=== PATIENT | female | born 1980 | race American Indian/Alaskan Native ===

== ENCOUNTER 2017-05-08 08:15 | Emergency (ER) | payer MEDICAID ==
[2017-05-08 08:28] VITALS: BP 137/86
[2017-05-08 08:56] LABS: Bilirubin,Urine NEG (Negative); Blood,Urine NEG (Negative); Color,Urine Yellow (Yellow); Mucus,Urine FEW /HPF; Nitrite,Urine NEG (Negative); Protein,Urine <15 mg/dL mg/dL (Negative); Urobilinogen,Urine < 2.0 mg/dL (<2.0)
--- NOTE | 2017-05-08 10:07 | Emergency Department Report ---
ED Female HPI - General Chief complaint: Urogenital-Female Stated complaint: UTI Time Seen by Provider: 05/08/17 09:04 Source: patient Mode of arrival: Ambulatory Limitations: No Limitations - History of Present Illness Initial comments: This is a 36-year-old female nontoxic, well nourished in appearance, no acute signs of distress presents to the ED with c/o of dysuria, polyuria, hematuria x1 week. Patient denies any vaginal discharge, vaginal bleeding, back pain, pelvic pain, abdominal pain, chest pain, shortness of breath, fever, chills, nausea, vomiting, headache or stiff neck. Patient denies any drug allergies. Past medical history includes headaches and hypertension. MD Complaint: dysuria -: week(s) (1) Radiation: non-radiating Severity: mild Severity scale (0 -10): 8 Quality: burning Consistency: constant Improves with: none Worsens with: urination Are you Now?: No Last Menstrual Period: 04/28/17 EDC: 02/02/18 Associated Symptoms: dysuria, hematuria. denies: vaginal discharge, vaginal bleeding, abdominal pain, nausea/vomiting, fever/chills, headaches, loss of appetite, rash, seizure, shortness of breath, syncope, weakness - Related Data Home Medications Medication Instructions Recorded Confirmed Last Taken Gabapentin 100 mg PO DAILY 11/29/12 05/19/13 05/18/13 Oxycodone HCl/Acetaminophen 1 each PO 3XW 05/19/13 05/19/13 05/17/13 [Percocet 10-325 mg Tablet] Previous Rx's Medication Instructions Recorded Last Taken Type HYDROcodone/APAP 5-325 [[place] 1 each PO Q6HR PRN #15 tablet 05/19/13 Unknown Rx 5/325 mg] Fluconazole [Diflucan TAB] 150 mg PO ONCE #2 tablet 05/08/17 Unknown Rx Sulfamethoxazole/Trimethoprim 1 each PO BID #14 tablet 05/08/17 Unknown Rx [Bactrim DS TAB] Allergies Allergy/AdvReac Type Severity Reaction Status Date / Time No Known Allergies Allergy Verified 05/19/13 19:33 ED Review of Systems ROS: Stated complaint: UTI Other details as noted in HPI Constitutional: denies: chills, fever Eyes: denies: eye pain, eye discharge, vision change ENT: denies: ear pain, throat pain Respiratory: denies: cough, shortness of breath, wheezing Cardiovascular: denies: chest pain, palpitations Endocrine: no symptoms reported Gastrointestinal: denies: abdominal pain, nausea, diarrhea Genitourinary: urgency, dysuria, frequency, hematuria. denies: discharge Musculoskeletal: denies: back pain, joint swelling, arthralgia Skin: denies: rash, lesions Neurological: denies: headache, weakness, paresthesias Psychiatric: denies: anxiety, depression Hematological/Lymphatic: denies: easy bleeding, easy bruising ED Past Medical Hx - Past Medical History Previous Medical History?: Yes Hx Hypertension: No Hx Headaches / Migraines: Yes Additional medical history: ovarian cyst - Surgical History Past Surgical History?: No Additional Surgical History: hernia repair - Social History Smoking Status: Never Smoker - Medications Home Medications: Home Medications Medication Instructions Recorded Confirmed Last Taken Type Gabapentin 100 mg PO DAILY 11/29/12 05/19/13 05/18/13 History HYDROcodone/APAP 5-325 [[place] 1 each PO Q6HR PRN #15 tablet 05/19/13 Unknown Rx 5/325 mg] Oxycodone HCl/Acetaminophen 1 each PO 3XW 05/19/13 05/19/13 05/17/13 History [Percocet 10-325 mg Tablet] Fluconazole [Diflucan TAB] 150 mg PO ONCE #2 tablet 05/08/17 Unknown Rx Sulfamethoxazole/Trimethoprim 1 each PO BID #14 tablet 05/08/17 Unknown Rx [Bactrim DS TAB] ED Physical Exam - General Limitations: No Limitations General appearance: alert, in no apparent distress - Head Head exam: Present: atraumatic, normocephalic - Eye Eye exam: Present: normal appearance - ENT ENT exam: Present: mucous membranes moist - Neck Neck exam: Present: normal inspection - Respiratory Respiratory exam: Present: normal lung sounds bilaterally. Absent: respiratory distress, wheezes, rales, rhonchi, stridor - Cardiovascular Cardiovascular Exam: Present: regular rate, normal rhythm, normal heart sounds. Absent: tachycardia, irregular rhythm, systolic murmur, diastolic murmur, rubs , gallop - GI/Abdominal GI/Abdominal exam: Present: soft, normal bowel sounds. Absent: distended, tenderness, guarding, rebound, rigid, diminished bowel sounds - Extremities Exam Extremities exam: Present: normal inspection, full ROM, normal capillary refill - Back Exam Back exam: Present: normal inspection, full ROM. Absent: tenderness, CVA tenderness (R), CVA tenderness (L), muscle spasm, paraspinal tenderness, vertebral tenderness, rash noted - Neurological Exam Neurological exam: Present: alert, oriented X3, CN II-XII intact, normal gait, reflexes normal - Psychiatric Psychiatric exam: Present: normal affect, normal mood - Skin Skin exam: Present: warm, dry, intact, normal color. Absent: rash ED Course Vital Signs 05/08/17 08:22 Temperature 97.6 F Pulse Rate 68 Respiratory 16 Rate Blood Pressure 137/86 O2 Sat by Pulse 8 L Oximetry - Reevaluation(s) Reevaluation #1: 05/08/17 10:07 Patient is speaking in full sentences with no signs of distress noted. ED Medical Decision Making - Medical Decision Making This is a 36-year-old female that presents with urinary tract infection. Patient is stable and was examined by me. UA obtained within normal limits but due to the patient symptoms of UTI I will treat patient with Bactrim. Patient stated there is no chance of her being . Last menstrual cycle 2017. Patient is requested for yeast infection treatment because patient develops what taking antibiotics. Patient received Diflucan at discharge. Patient was instructed Follow-up with a primary care doctor in 3-5 days or if symptoms worsen and continue return to emergency room as soon as possible. At time of discharge, the patient does not seem toxic or ill in appearance. No acute signs of distress noted. Patient agrees to discharge treatment plan of care. No further questions noted by the patient. Critical care attestation.: If time is entered above; I have spent that time in minutes in the direct care of this critically ill patient, excluding procedure time. ED Disposition Clinical Impression: UTI (urinary tract infection) Qualifiers: Urinary tract infection type: site unspecified Hematuria presence: with hematuria Qualified Code(s): N39.0 - Urinary tract infection, site not specified ; R31.9 - Hematuria, unspecified; R31.9 - Hematuria, unspecified Disposition: - TO HOME OR SELFCARE Is pt being admited?: No Does the pt Need Aspirin: No Condition: Stable Instructions: Urinary Tract Infection in Children (ED), Sulfamethoxazole/ Trimethoprim (By mouth) Additional Instructions: Follow-up with a primary care doctor in 3-5 days or if symptoms worsen and continue return to emergency room as soon as possible. Prescriptions: Fluconazole [Diflucan TAB] 150 mg PO ONCE #2 tablet Sulfamethoxazole/Trimethoprim [Bactrim DS TAB] 1 each PO BID #14 tablet Referrals: PRIMARY CARE, [Primary Care Provider] - 3-5 Days JENNIFER APPIAH MD [Staff Physician] - 3-5 Days [facility] [Outside] - 3-5 Days [facility] [Outside] - 3-5 Days Forms: Work/School Release Form(ED)
== END 2017-05-08 10:14 | disposition home or self-care (01) ==
LOC: ED 08:15
DX: N39.0 Urinary tract infection, site not specified (principal); R31.9 Hematuria, unspecified; G43.909 Migraine, unspecified, not intractable, without status migrainosus; N83.209 Unspecified ovarian cyst, unspecified side
CPT/HCPCS: 81001; 99283

== ENCOUNTER 2020-01-09 11:35 | Emergency (ER) | payer MEDICAID ==
[2020-01-09 12:59] VITALS: BP 174/99
== END 2020-01-09 13:00 | disposition left against medical advice (07) ==
LOC: ED 11:35
DX: R51.9 Headache, unspecified (principal); Z53.21 Procedure and treatment not carried out due to patient leaving prior to being seen by health care provider

== ENCOUNTER 2021-12-01 08:03 | Emergency (ER) | payer MEDICAID ==
[2021-12-01 09:10] LABS: Calcium Oxalate Crystals,Urine 1+; Mucus,Urine 2+ /HPF
[2021-12-01 09:13] LABS: Color,Urine Straw (Yellow)
[2021-12-01 10:04] LABS: Basophils % (Auto) 0.4 % (0.0-1.8); Eosinophils # (Auto) 0.3 K/mm3 (0.0-0.4); Eosinophils % (Auto) 3.1 % (0.0-4.3); Hematocrit 37.4 % (30.3-42.9); Hemoglobin 12.1 gm/dl (10.1-14.3); Lymphocytes # (Auto) 4.1 K/mm3 (1.2-5.4); Lymphocytes % (Auto) 36.1 % (13.4-35.0); Mean Corpuscular HGB Conc 32 % (30-34); Mean Corpuscular Volume 92 fl (79-97); Monocytes # (Auto) 0.7 K/mm3 (0.0-0.8); Monocytes % (Auto) 6.3 % (0.0-7.3); Platelet Count 247 K/mm3 (140-440); Red Blood Count 4.04 M/mm3 (3.65-5.03); Red Cell Distribution Width 13.1 % (13.2-15.2)
[2021-12-01 10:20] LABS: Blood Urea Nitrogen 12 mg/dL (7-17); Calcium 10.3 mg/dL (8.4-10.2); Hemolysis Index 40
[2021-12-01 10:21] LABS: BUN/Creatinine Ratio 17
[2021-12-01 12:13] LABS: Alanine Aminotransferase 36 units/L (7-56); Albumin 4.6 g/dL (3.9-5)
--- NOTE | 2021-12-01 12:25 | Emergency Department Report ---
ED Female HPI - General Chief complaint: Abdominal Pain Stated complaint: VAGINAL DISCHARGE/LOWER ABD PAIN Source: patient Mode of arrival: Ambulatory Limitations: No Limitations - History of Present Illness Initial comments: 41-year-old female presents to the ED complaining of vaginal discharge with pelvis pain x2 months. Patient states she evaluated by her ASSISTANT PROPERTY MANAGER and was told that she discharge was normal. Patient states she has now experienced pain in her lower pelvic area. Patient did not have any pain in the pelvic area today. Patient denies any fever or chills at present time. Patient is alert and oriented x3 no acute distress noted. No ill appearance noted MD Complaint: vaginal discharge Onset/Timin -: month(s) Severity scale (0 -10): 0 Consistency: intermittent Improves with: none Worsens with: none Are you Now?: No - Related Data Home Medications Medication Instructions Recorded Confirmed Last Taken Gabapentin 100 mg PO DAILY 11/29/12 05/19/13 05/18/13 Oxycodone HCl/Acetaminophen 1 each PO 3XW 05/19/13 05/19/13 05/17/13 [Percocet 10-325 mg Tablet] Previous Rx's Medication Instructions Recorded Last Taken Type HYDROcodone/APAP 5-325 [[place] 1 each PO Q6HR PRN #15 tablet 05/19/13 Unknown Rx 5/325 mg] Fluconazole (Nf) [Diflucan TAB] 150 mg PO ONCE #2 tablet 05/08/17 Unknown Rx Sulfamethoxazole/Trimethoprim 1 each PO BID #14 tablet 05/08/17 Unknown Rx [Bactrim DS TAB] Fluconazole (Nf) [Diflucan TAB] 150 mg PO ONCE 2 Days #2 tablet 12/01/21 Unknown Rx metroNIDAZOLE [Flagyl TAB] 500 mg PO Q12HR 7 Days #14 tab 12/01/21 Unknown Rx Allergies Allergy/AdvReac Type Severity Reaction Status Date / Time No Known Allergies Allergy Verified 12/01/21 08:06 ED Review of Systems ROS: Stated complaint: VAGINAL DISCHARGE/LOWER ABD PAIN Other details as noted in HPI Constitutional: denies: chills, fever Eyes: denies: eye pain, eye discharge, vision change ENT: denies: ear pain, throat pain Respiratory: denies: cough, shortness of breath, wheezing Cardiovascular: denies: chest pain, palpitations Endocrine: no symptoms reported Gastrointestinal: denies: abdominal pain, nausea, diarrhea Genitourinary: denies: urgency, dysuria, discharge Musculoskeletal: denies: back pain, joint swelling, arthralgia Skin: denies: rash, lesions Neurological: denies: headache, weakness, paresthesias Psychiatric: denies: anxiety, depression Hematological/Lymphatic: denies: easy bleeding, easy bruising ED Past Medical Hx - Past Medical History Hx Hypertension: No Hx Headaches / Migraines: Yes Additional medical history: ovarian cyst - Surgical History Additional Surgical History: hernia repair - Social History Smoking Status: Never Smoker - Medications Home Medications: Home Medications Medication Instructions Recorded Confirmed Last Taken Type Gabapentin 100 mg PO DAILY 11/29/12 05/19/13 05/18/13 History HYDROcodone/APAP 5-325 [[place] 1 each PO Q6HR PRN #15 tablet 05/19/13 Unknown Rx 5/325 mg] Oxycodone HCl/Acetaminophen 1 each PO 3XW 05/19/13 05/19/13 05/17/13 History [Percocet 10-325 mg Tablet] Fluconazole (Nf) [Diflucan TAB] 150 mg PO ONCE #2 tablet 05/08/17 Unknown Rx Sulfamethoxazole/Trimethoprim 1 each PO BID #14 tablet 05/08/17 Unknown Rx [Bactrim DS TAB] Fluconazole (Nf) [Diflucan TAB] 150 mg PO ONCE 2 Days #2 tablet 12/01/21 Unknown Rx metroNIDAZOLE [Flagyl TAB] 500 mg PO Q12HR 7 Days #14 tab 12/01/21 Unknown Rx ED Physical Exam - General Limitations: No Limitations General appearance: alert, in no apparent distress - Head Head exam: Present: atraumatic, normocephalic - Eye Eye exam: Present: normal appearance - ENT ENT exam: Present: mucous membranes moist - Neck Neck exam: Present: normal inspection - Respiratory Respiratory exam: Present: normal lung sounds bilaterally. Absent: respiratory distress - Cardiovascular Cardiovascular Exam: Present: regular rate, normal rhythm. Absent: systolic murmur, diastolic murmur, rubs, gallop - GI/Abdominal GI/Abdominal exam: Present: soft, normal bowel sounds - Speculum exam: Present: vaginal discharge, cervical discharge - Extremities Exam Extremities exam: Present: normal inspection - Back Exam Back exam: Present: normal inspection - Neurological Exam Neurological exam: Present: alert, oriented X3 - Psychiatric Psychiatric exam: Present: normal affect, normal mood - Skin Skin exam: Present: warm, dry, intact, normal color. Absent: rash ED Course Vital Signs 12/01/21 08:05 Temperature 98.6 F Pulse Rate 82 Respiratory 16 Rate Blood Pressure 165/91 [Right] O2 Sat by Pulse 100 Oximetry ED Medical Decision Making - Lab Data Result diagrams: 12/01/21 09:49 12/01/21 08:45 - Medical Decision Making 41-year-old female presents to the ED complaining of vaginal discharge with pelvis pain x2 months. Patient states she evaluated by her ASSISTANT PROPERTY MANAGER and was told that she discharge was normal. Patient states she has now experienced pain in her lower pelvic area. Patient did not have any pain in the pelvic area today. Patient denies any fever or chills at present time. Patient is alert and oriented x3 no acute distress noted. No ill appearance noted. Physical examination patient had a copious amount of white discharge noted on pelvic exam. Wet prep significant for bacterial vaginosis Rechecked the patient is resting quietly , comfortable and feeling better. I discussed the results of diagnostic study, my clinical impression and the plan for further treatment with the patient. Patient agrees with plan and discharge at this present time. All question addressed. I have given the patient instruction regarding a diagnosis ,expectation ,follow- up and return precaution. I explained to the patient that emergent condition may arise and to return to the ED for new worsen and any new persisting condition. I have explained the importance of following up with the primary care physician or referral physician listed below has instructed. The patient verbalized understanding of discharge instruction. Abnormal Lab Results 12/01/21 12/01/21 12/01/21 08:18 08:45 09:49 WBC 11.2 H RBC 4.04 Hgb 12.1 Hct 37.4 MCV 92 MCH 30 MCHC 32 RDW 13.1 L Plt Count 247 Lymph % (Auto) 36.1 H [place] % (Auto) 6.3 Eos % (Auto) 3.1 Baso % (Auto) 0.4 Lymph # (Auto) 4.1 [place] # (Auto) 0.7 Eos # (Auto) 0.3 Baso # (Auto) 0.0 Seg Neutrophils % 54.1 Seg Neutrophils # 6.1 Sodium 141 Potassium 4.2 Chloride 106.4 Carbon Dioxide 23 Anion Gap 16 BUN 12 Creatinine 0.7 Estimated GFR > 60 BUN/Creatinine Ratio 17 Glucose 83 Calcium 10.3 H Total Bilirubin AST ALT Alkaline Phosphatase Total Protein Albumin Albumin/Globulin Ratio Lipase HCG, Qual Urine Color Straw Urine Turbidity Clear Specific [place] (Man) 1.025 Ur Protein (Man) <30 mg dl Ur Ketones (Man) Negative Ur Nitrite (Man) Negative Ur Reducing Substances Not Reportable Urine Bilirubin (Man) Negative Urine Ictotest Not Reportable Leukocyte Esterase (Man) Negative Urine WBC (Auto) 1.0 Urine RBC (Auto) 1.0 U Epithel Cells (Auto) 2.0 Urine RBC (Manual) Negative Calcium Oxalate Crystal 1+ Urine Mucus 2+ 12/01/21 12/01/21 12/01/21 09:49 11:04 11:04 WBC RBC Hgb Hct MCV MCH MCHC RDW Plt Count Lymph % (Auto) [place] % (Auto) Eos % (Auto) Baso % (Auto) Lymph # (Auto) [place] # (Auto) Eos # (Auto) Baso # (Auto) Seg Neutrophils % Seg Neutrophils # Sodium Potassium Chloride Carbon Dioxide Anion Gap BUN Creatinine Estimated GFR BUN/Creatinine Ratio Glucose Calcium Total Bilirubin 0.40 AST 24 ALT 36 Alkaline Phosphatase 86 Total Protein 6.8 Albumin 4.6 Albumin/Globulin Ratio 2.1 Lipase 21 HCG, Qual Negative Urine Color Urine Turbidity Specific [place] (Man) Ur Protein (Man) Ur Ketones (Man) Ur Nitrite (Man) Ur Reducing Substances Urine Bilirubin (Man) Urine Ictotest Leukocyte Esterase (Man) Urine WBC (Auto) Urine RBC (Auto) U Epithel Cells (Auto) Urine RBC (Manual) Calcium Oxalate Crystal Urine Mucus Critical care attestation.: If time is entered above; I have spent that time in minutes in the direct care of this critically ill patient, excluding procedure time. ED Disposition Clinical Impression: Bacterial vaginosis Disposition: HOME / SELF CARE / HOMELESS Is pt being admited?: No Does the pt Need Aspirin: No Condition: Stable Instructions: Bacterial Vaginosis, Bacterial Vaginosis, [id number], Bacterial Vaginosis (ED), Abdominal Pain (ED) Additional Instructions: Take medication as prescribed Return to ED for any worsening symptom Prescriptions: Fluconazole (Nf) [Diflucan TAB] 150 mg PO ONCE 2 Days #2 tablet metroNIDAZOLE [Flagyl TAB] 500 mg PO Q12HR 7 Days #14 tab Referrals: GURWINDER ZHANG MD [Primary Care Provider] - 3-5 Days Forms: STI Treatment and Prevention Time of Disposition: 12:29
[2021-12-01 12:42] LABS: Bilirubin,Direct < 0.2 mg/dL (0-0.2)
[2021-12-01 12:49] VITALS: BP 132/84
== END 2021-12-01 12:47 | disposition home or self-care (01) ==
LOC: ED 08:03
DX: N76.0 Acute vaginitis (principal); B96.89 Other specified bacterial agents as the cause of diseases classified elsewhere; G43.909 Migraine, unspecified, not intractable, without status migrainosus; Z79.899 Other long term (current) drug therapy
CPT/HCPCS: 36415; 80048; 80076; 81001; 83690; 84703; 85025; 87210; 99284